=== PATIENT | female | born 1940 | race Caucasian/White ===

== ENCOUNTER 2017-05-31 09:17 | Outpatient (CLI) | payer MEDICARE ==
--- NOTE | 2017-05-31 10:38 | MMO ---
BILATERAL SCREENING MAMMOGRAM: Date: 05/31/17 INDICATION: Annual exam. COMPARISON: Prior exams dated 08/14/14 and 03/21/10. FINDINGS: Interpretation of this exam was assisted with computer-aided detection. There are scattered fibroglandular elements bilaterally. No new suspicious mass, cluster of microcalcifications, or area of architectural distortion is evide nt. There are some benign-appearing calcifications within the right breast. IMPRESSION: BIRADS 2: Benign Finding(s) Recommend routine annual mammographic screening. POS: FAIZA
== END 2017-05-31 09:18 | disposition home or self-care (01) ==
LOC: MAMMO 09:17
PROVIDERS: ATTEND Family Medicine
DX: Z12.31 Encounter for screening mammogram for malignant neoplasm of breast (principal)
CPT/HCPCS: 77067; G0202

== ENCOUNTER 2018-01-13 09:24 | Outpatient (CLI) | payer MEDICARE ==
--- NOTE | 2018-01-13 11:31 | RAD ---
CHEST 2 VIEWS: Date: 01/13/18 HISTORY: Dyspnea. COMPARISON: Radiograph from 2017. FINDINGS: Scattered nodular densities and scarring in both lungs is similar. No new focal air space consolidati on, pneumothorax, or effusion. Mild spondylosis thoracic spine. IMPRESSION: Unchanged chronic changes. No acute intrathoracic abnormality. POS: H
== END 2018-01-13 09:25 | disposition home or self-care (01) ==
LOC: RAD 09:24
PROVIDERS: ATTEND Internal Medicine Critical Care Medicine
DX: R06.00 Dyspnea, unspecified (principal)
CPT/HCPCS: 71046

== ENCOUNTER 2019-01-09 10:12 | Outpatient (CLI) | payer MEDICARE ==
--- NOTE | 2019-01-09 10:30 | RAD ---
Exam: Chest 2 views HISTORY:Dyspnea Comparison: 01/13/2018 FINDINGS: Lungs: A grouping of reticulonodular opacities are seen at the lateral right mid lung zone, and to a lesser extent at the lateral left midlung. Focal left lateral basilar opacity remains. Cardiac silhouette:Mildly enlarged Pulmonary vessels: Slight central prominence Pleural Spaces: Clear Pneumothorax: None Osseous abnormalities: None of acuity. IMPRESSION: Continued, scattered bilateral reticulonodular opacities throughout each lung. Consider f ollow-up CT thorax for further evaluation.
== END 2019-01-09 10:13 | disposition home or self-care (01) ==
LOC: RAD 10:12
PROVIDERS: ATTEND Internal Medicine Critical Care Medicine
DX: R06.00 Dyspnea, unspecified (principal); R91.8 Other nonspecific abnormal finding of lung field
CPT/HCPCS: 71046

== ENCOUNTER 2019-01-14 12:10 | Emergency (ER) | payer MEDICARE ==
--- NOTE | 2019-01-14 13:15 | CT ---
CT head noncontrast HISTORY: Lightheaded. Dizzy. FINDINGS: There is no evidence of acute intracranial hemorrhage or infarct. The ventricles appear nor mal in size, shape and position. There is no mass effect or shift of midline structures. Motion artifact obscures detail at the brain base. Visualized paranasal sinuses remain well aerated. IMPRESSION: No acute intracranial abnormalities are demonstrated.
[2019-01-14] MEDS ORDERED: hydrALAZINE 20 MG/ML VIAL ONE (13:21)
--- NOTE | 2019-01-14 13:38 | RAD ---
EXAM: Single view of the chest HISTORY: Lightheadedness and dizziness COMPARISON: 10/25/2013 FINDINGS: Single view of the chest shows an enlarged but stable cardiomediastinal silhouette. There i s no evidence of consolidation, mass, or pleural effusion. Degenerative changes are seen in the spine. IMPRESSION: Cardiomegaly without evidence of acute cardiopulmonary disease
[2019-01-14 13:44] LABS: #Basophils 0.1 thou/uL (0.0-0.2); #Eosinphils 0.3 thou/uL (0.0-0.7); #Lymphocytes 1.4 thou/uL (1.20-3.40); #Monocytes 0.5 thou/uL (0.11-0.59); #Neutrophils 5.2 thou/uL (1.40-6.50); %Eosinophils 3.4 % (0.0-10.0); %Lymphocytes 18.6 % (21.0-51.0); %Monocytes 6.9 % (0.0-10.0); %Neutrophils 70.1 % (42.0-75.0); Hemoglobin 14.1 g/dL (12.0-16.0); Mean Corpuscular HGB CONC 35.2 g/dL (32.0-36.0); Mean Corpuscular Hemoglobin 31.7 pg (27.0-31.0); Mean Corpuscular Volume 90.2 fL (78.0-98.0); Mean Platelet Volume 7.9 fL (7.4-10.4); Platelet Count 230 thou/uL (130-400); RBC Distribution Width 13.6 % (11.5-14.5); Red Blood Cell (RBC) Count 4.43 mill/uL (4.20-5.40); White Blood Cell (WBC) Count 7.4 thou/uL (4.8-10.8)
[2019-01-14 13:48] LABS: Bilirubin Negative (Negative); Blood, Urine Negative (Negative); Clarity CLOUDY (Clear); Glucose, Urine (Dipstick) Negative (Negative); Leukocyte Negative (Negative); Nitrite Negative (Negative); Protein, Urine (Dipstick) Negative (Neg-Trace); Specific Gravity, Urine 1.006 (1.002-1.036); Urobilinogen 0.2 mg/dL (0.2-1.0); pH, Urine 7.5 (5.0-9.0)
[2019-01-14 13:59] LABS: ALT (SGPT) 19 U/L (8-55); AST (SGOT) 30 U/L (5-34); Albumin 4.8 g/dL (3.4-4.8); Alkaline Phosphatase 79 U/L (40-150); Anion Gap 14 mmol/L (10-20); BUN (Urea Nitrogen) 15 mg/dL (9.8-20.1); Bilirubin, Total 1.3 mg/dL (0.2-1.2); Calc. Creatinine Clearance 0 mL/min (70-130); Calcium 10.6 mg/dL (7.8-10.44); Carbon Dioxide 29 mmol/L (23-31); Chloride 96 mmol/L (98-107); Estimated GFR-MDRD 67; Globulin 2.8 g/dL (2.4-3.5); Glucose 103 mg/dL (83-110); Protein, Total 7.6 g/dL (6.0-8.3); Sodium 135 mmol/L (136-145)
== END 2019-01-14 14:45 | disposition home or self-care (01) ==
LOC: ERS 12:10
DX: R42 Dizziness and giddiness (principal); I10 Essential (primary) hypertension
CPT/HCPCS: 36415; 70450; 71045; 80053; 81003; 84484; 85025; 93005; 96374; J0360

== ENCOUNTER 2019-03-08 12:23 | Outpatient (CLI) | payer MEDICARE | END 2019-03-08 12:24 | disposition home or self-care (01) | LOC: ULT 12:23 | PROVIDERS: ATTEND Physician Assistant | DX: I51.7 Cardiomegaly (principal); I08.3 Combined rheumatic disorders of mitral, aortic and tricuspid valves | CPT/HCPCS: 93306 ==

== ENCOUNTER 2019-05-22 08:45 | Outpatient (CLI) | payer MEDICARE ==
--- NOTE | 2019-05-22 11:35 | BD ---
DEXA BONE DENSITY STUDY: Date: 05/22/19 HISTORY: Osteoporosis screening. COMPARISON: None. FINDINGS: Lumbar Spine: BMD (g/cm2) L1 0.898 T-Score: -0.8 Z-Score: 1.4 L2 0.928 T-Score: -0.9 Z-Score: 1.5 L3 1.129 T-Score: 0.4 Z-Score: 3.0 L4 1.245 T-Score: 1.7 Z-Score: 4.3 L1-L4 1.050 T-Score: 0.2 Z-Score: 2.5 Left Femoral Neck: 0.588 T-Score: -2.4 Z-Score: -0.2 Total Femur: 0.762 T-Score: -1.5 Z-Score: 0.4 WHO Classification: Osteopenia. IMPRESSION: Osteopenia with elevated fracture risk. POS: C
== END 2019-05-22 08:46 | disposition home or self-care (01) ==
LOC: BICMAMMO 08:45
PROVIDERS: ATTEND Internal Medicine
DX: M81.0 Age-related osteoporosis without current pathological fracture (principal); M85.852 Other specified disorders of bone density and structure, left thigh
CPT/HCPCS: 77080

== ENCOUNTER 2019-08-28 12:07 | Outpatient (CLI) | payer MEDICARE ==
--- NOTE | 2019-08-28 14:59 | RAD ---
PA AND LATERAL VIEWS CHEST: Date: 08/28/2019 HISTORY: Cough. FINDINGS/IMPRESSION: Comparison made with exam of 08/23/2019. The heart size is normal. The lungs are well expanded without lobar consolidation, pneumothoraces, or pleural effusions. Peribronchial thickening is noted on either side. There are degenerative changes in the spine. Further evaluation with CT scan would be helpful. POS: [facility]
== END 2019-08-28 12:08 | disposition home or self-care (01) ==
LOC: BICRAD 12:07
PROVIDERS: ATTEND Physician Assistant
DX: R05 Cough (principal)
CPT/HCPCS: 71046

== ENCOUNTER 2020-02-20 10:23 | Outpatient (CLI) | payer MEDICARE ==
--- NOTE | 2020-02-20 10:38 | RAD ---
EXAM: Chest PA and lateral: HISTORY: Dyspnea. Seasonal allergies COMPARISON: 08/28/2019 FINDINGS: Heart: Normal cardiac silhouette Aorta: Slight elongation of the aorta Pulmonary vessels: Normal Costophrenic angles: Costophrenic angles are clear. Lungs: Hyperinflation with chronic changes. No consolidation or mass. Pneumothorax: No pneumothorax Osseous structures: No acute osseous abnormalities IMPRESSION: 1. Hyperinflation. COPD. Chronic lung parenchymal changes.
== END 2020-02-20 10:24 | disposition home or self-care (01) ==
LOC: BICRAD 10:23
PROVIDERS: ATTEND Internal Medicine Critical Care Medicine
DX: R06.00 Dyspnea, unspecified (principal); J44.9 Chronic obstructive pulmonary disease, unspecified; J98.4 Other disorders of lung
CPT/HCPCS: 71046

== ENCOUNTER 2021-02-19 10:49 | Outpatient (CLI) | payer MEDICARE | END 2021-02-19 10:50 | disposition home or self-care (01) | LOC: BICRAD 10:49 | PROVIDERS: ATTEND Internal Medicine Critical Care Medicine | DX: R06.00 Dyspnea, unspecified (principal) | CPT/HCPCS: 71046 ==

== ENCOUNTER 2021-06-12 09:36 | Outpatient (CLI) | payer MEDICARE | END 2021-06-12 09:37 | disposition home or self-care (01) | LOC: BICMAMMO 09:36 | PROVIDERS: ATTEND Internal Medicine | DX: Z12.31 Encounter for screening mammogram for malignant neoplasm of breast (principal); M81.0 Age-related osteoporosis without current pathological fracture; M85.89 Other specified disorders of bone density and structure, multiple sites | CPT/HCPCS: 77063; 77067; 77080 ==

== ENCOUNTER 2022-09-25 10:48 | Outpatient (CLI) | payer MEDICARE | END 2022-09-25 10:49 | disposition home or self-care (01) | LOC: BICRAD 10:48 | PROVIDERS: ATTEND Family Medicine | DX: R06.02 Shortness of breath (principal) | CPT/HCPCS: 71046 ==

== ENCOUNTER 2022-12-10 13:28 | Outpatient (CLI) | payer MEDICARE | END 2022-12-10 13:29 | disposition home or self-care (01) | LOC: RAD 13:28 | PROVIDERS: ATTEND Internal Medicine Critical Care Medicine | DX: R06.00 Dyspnea, unspecified (principal) | CPT/HCPCS: 71046 ==

== ENCOUNTER 2022-12-31 10:33 | Outpatient (CLI) | payer MEDICARE ==
[2022-12-31 11:46] LABS: Hemoglobin 13.3 g/dL (12.0-15.5); Mean Corpuscular HGB CONC 34.1 g/dL (32.0-36.0); Mean Corpuscular Hemoglobin 30.2 pg (27.0-33.0); Mean Corpuscular Volume 88.4 fl (81.6-98.3); Mean Platelet Volume 9.9 fl (7.4-10.4); Platelet Count 225 10x3/uL (150-450); RBC Distribution Width 13.4 % (11.5-14.5); Red Blood Cell (RBC) Count 4.41 10x6/uL (3.90-5.03); White Blood Cell (WBC) Count 7.7 10x3/uL (3.5-10.5)
[2022-12-31 12:13] LABS: Anion Gap 14 mmol/L (10-20); BUN (Urea Nitrogen) 14 mg/dL (9.8-20.1); Calc. Creatinine Clearance 0 mL/min (70-130); Calcium 9.3 mg/dL (7.8-10.44); Carbon Dioxide 29 mmol/L (23-31); Chloride 95 mmol/L (98-107); Estimated GFR 72; Glucose 101 mg/dL (83-110); Potassium 3.9 mmol/L (3.5-5.1); Sodium 134 mmol/L (136-145)
== END 2022-12-31 10:34 | disposition home or self-care (01) ==
LOC: LABBT 10:33
PROVIDERS: ATTEND Student in an Organized Health Care Education/Training Program
DX: Z01.812 Encounter for preprocedural laboratory examination (principal); J38.6 Stenosis of larynx
CPT/HCPCS: 80048; 85027

== ENCOUNTER 2023-04-15 09:17 | Inpatient (IN) | payer MEDICARE ==
[2023-04-15 09:52] LABS: #Eosinphils 0.1 thou/uL (0.0-0.7); #Monocytes 0.5 thou/uL (0.11-0.59); %Basophils 0.3 % (0.0-1.0); %Eosinophils 0.5 % (0.0-10.0); %Lymphocytes 8.8 % (21.0-51.0); %Neutrophils 85.2 % (42.0-75.0); Hematocrit 40.8 % (36.0-47.0); Hemoglobin 13.3 g/dL (12.0-16.0); Mean Corpuscular HGB CONC 32.6 g/dL (32.0-36.0); Mean Corpuscular Hemoglobin 30.1 pg (27.0-31.0); Mean Corpuscular Volume 92.3 fl (78.0-98.0); Mean Platelet Volume 10.6 fL (7.4-10.4); Platelet Count 206 10x3/uL (130-400); RBC Distribution Width 15.4 % (11.5-14.5); Red Blood Cell (RBC) Count 4.42 mill/uL (4.20-5.40); White Blood Cell (WBC) Count 9.4 10x3/uL (4.8-10.8)
[2023-04-15 10:16] LABS: ALT (SGPT) 15 U/L (8-55); AST (SGOT) 24 U/L (5-34); Alkaline Phosphatase 69 U/L (40-110); Anion Gap 14 mmol/L (10-20); BUN (Urea Nitrogen) 18 mg/dL (9.8-20.1); Calc. Creatinine Clearance 0 mL/min (70-130); Calcium 9.3 mg/dL (7.8-10.44); Carbon Dioxide 23 mmol/L (23-31); Chloride 95 mmol/L (98-107); Estimated GFR 74; Globulin 2.4 g/dL (2.4-3.5); Glucose 153 mg/dL (83-110); PTT 23.2 sec (22.9-36.1); Potassium 3.2 mmol/L (3.5-5.1); Protein, Total 6.4 g/dL (5.8-8.1); Prothrombin Time 13.7 sec (12.0-14.7); Sodium 129 mmol/L (136-145)
[2023-04-15 10:19] LABS: Troponin I Less than 0.010 ng/mL (< 0.028)
[2023-04-15] MEDS ORDERED: Acetaminophen 650 MG Suppository PR PRN (10:35)
[2023-04-15] MEDS ORDERED: Ondansetron PF 4 MG/2 ML Vial IVP PRN (10:35)
[2023-04-15] MEDS ORDERED: Senokot S 8.6-50 MG TAB PO PRN (10:35)
[2023-04-15] MEDS ORDERED: Bisacodyl 10 MG SUPP PR PRN (10:35)
[2023-04-15] MEDS ORDERED: hydrALAZINE 20 MG/ML VIAL SLOW IVP PRN (10:35)
[2023-04-15] MEDS ORDERED: Aspirin 300 MG Suppository ONE (10:58)
[2023-04-15 12:45] VITALS: BMI 21.1
[2023-04-15] MEDS ORDERED: Potassium Chloride 20 MEQ/100 ML PREMIX BAG ONE (12:46)
[2023-04-15] MEDS ORDERED: Iopamidol-370 76% 500 ML MDV (1 ML CHARGE) ONE (12:47)
[2023-04-15] MEDS: Sodium Chloride 0.9% 1,000 ML IV SCH (12:53)
[2023-04-15] MEDS: Potassium Chloride 20 MEQ in Premix Bag 1 BAG IVPB SCH ×2 (12:56→16:31)
[2023-04-15 13:34] LABS: Troponin I Less than 0.010 ng/mL (< 0.028)
[2023-04-15 17:34] LABS: Troponin I Less than 0.010 ng/mL (< 0.028)
[2023-04-15] MEDS: Famotidine/PF 20 mg/2ml Vial SLOW IVP SCH (20:22)
[2023-04-15] MEDS: Atorvastatin Calcium 40 MG TAB PO SCH (20:38)
[2023-04-16] MEDS: Sodium Chloride 0.9% 1,000 ML IV SCH (03:58)
[2023-04-16 05:10] LABS: #Monocytes 1.3 thou/uL (0.11-0.59); #Neutrophils 10.8 thou/uL (1.40-6.50); %Basophils 0.2 % (0.0-1.0); %Eosinophils 0.1 % (0.0-10.0); %Monocytes 9.5 % (0.0-10.0); %Neutrophils 77.8 % (42.0-75.0); Hematocrit 44.1 % (36.0-47.0); Hemoglobin 14.8 g/dL (12.0-16.0); Mean Corpuscular HGB CONC 33.6 g/dL (32.0-36.0); Mean Corpuscular Hemoglobin 29.5 pg (27.0-31.0); Mean Platelet Volume 10.6 fL (7.4-10.4); Platelet Count 289 10x3/uL (130-400); RBC Distribution Width 15.8 % (11.5-14.5); Red Blood Cell (RBC) Count 5.02 mill/uL (4.20-5.40); White Blood Cell (WBC) Count 13.8 10x3/uL (4.8-10.8)
[2023-04-16 05:11] LABS: Hemoglobin A1c 5.1 % (4.0-6.0)
[2023-04-16 05:20] LABS: Mean Corpuscular Volume 87.8 fl (78.0-98.0)
[2023-04-16 05:42] LABS: ALT (SGPT) 16 U/L (8-55); AST (SGOT) 35 U/L (5-34); Albumin 4.2 g/dL (3.4-4.8); Alkaline Phosphatase 75 U/L (40-110); Anion Gap 17 mmol/L (10-20); BUN (Urea Nitrogen) 13 mg/dL (9.8-20.1); Bilirubin, Total 1.9 mg/dL (0.2-1.2); Calc. Creatinine Clearance 48 mL/min (70-130); Calcium 10.1 mg/dL (7.8-10.44); Carbon Dioxide 25 mmol/L (23-31); Cardiac Risk 2.6 (Less than 4.5); Chloride 94 mmol/L (98-107); Cholesterol 187 mg/dl (< 200 Desired); Estimated GFR 84; Globulin 2.7 g/dL (2.4-3.5); Glucose 101 mg/dL (83-110); HDL Cholesterol 73 mg/dL (>60 Neg Risk); LDL Cholesterol, Calculated 101 mg/dL; Magnesium 1.3 mg/dL (1.6-2.6); Potassium 3.5 mmol/L (3.5-5.1); Protein, Total 6.9 g/dL (5.8-8.1); Sodium 132 mmol/L (136-145); Triglycerides 65 mg/dL (Less than 150)
[2023-04-16] MEDS: Aspirin 300 MG Suppository PR SCH (09:31)
[2023-04-16] MEDS: Atorvastatin Calcium 40 MG TAB PO SCH (20:25)
[2023-04-16] MEDS: Famotidine/PF 20 mg/2ml Vial SLOW IVP SCH (20:25)
[2023-04-17] MEDS: Aspirin 300 MG Suppository PR SCH (10:18)
[2023-04-17] MEDS: Acetaminophen 325 MG TAB PO PRN (11:33)
[2023-04-17] MEDS ORDERED: Metoprolol Tartrate 25 MG TAB PO SCH ×2 (12:15→21:00)
[2023-04-17] MEDS ORDERED: Magnesium Sulfate 3 GM in Sodium Chloride 0.9% 100 ML IVPB SCH (13:15)
[2023-04-17] MEDS: Famotidine/PF 20 mg/2ml Vial SLOW IVP SCH (21:14)
[2023-04-17] MEDS: Atorvastatin Calcium 40 MG TAB PO SCH (21:24)
[2023-04-17] MEDS ORDERED: Methotrexate Sodium 2.5 MG TAB PO SCH (22:00)
[2023-04-18] MEDS: Acetaminophen 325 MG TAB PO PRN ×2 (05:16→15:24)
[2023-04-18 07:16] LABS: #Monocytes 1.2 thou/uL (0.11-0.59); #Neutrophils 9.9 thou/uL (1.40-6.50); %Basophils 0.2 % (0.0-1.0); %Eosinophils 0.3 % (0.0-10.0); %Lymphocytes 7.3 % (21.0-51.0); %Monocytes 10.1 % (0.0-10.0); %Neutrophils 81.4 % (42.0-75.0); Hematocrit 45.6 % (36.0-47.0); Hemoglobin 15.1 g/dL (12.0-16.0); Mean Corpuscular HGB CONC 33.1 g/dL (32.0-36.0); Mean Corpuscular Hemoglobin 29.2 pg (27.0-31.0); Mean Platelet Volume 10.2 fL (7.4-10.4); Platelet Count 279 10x3/uL (130-400); RBC Distribution Width 15.8 % (11.5-14.5); Red Blood Cell (RBC) Count 5.18 mill/uL (4.20-5.40); White Blood Cell (WBC) Count 12.1 10x3/uL (4.8-10.8)
[2023-04-18 07:38] LABS: Anion Gap 16 mmol/L (10-20); BUN (Urea Nitrogen) 24 mg/dL (9.8-20.1); Calc. Creatinine Clearance 45 mL/min (70-130); Calcium 9.6 mg/dL (7.8-10.44); Carbon Dioxide 25 mmol/L (23-31); Chloride 94 mmol/L (98-107); Estimated GFR 78; Glucose 108 mg/dL (83-110); Magnesium 2.1 mg/dL (1.6-2.6); Sodium 132 mmol/L (136-145)
[2023-04-18] MEDS ORDERED: Aspirin Chewable 81 MG TAB PO SCH (09:30)
[2023-04-18] MEDS: Atenolol 50 MG TAB PO SCH (10:40)
[2023-04-18] MEDS: Calcium Carbonate 600 MG + Vit D TAB PO SCH (10:40)
[2023-04-18] MEDS: hydrALAZINE 25 MG TAB PO SCH ×4 (10:41→20:31)
[2023-04-18] MEDS: Multivit, Therapeutic 1 TAB PO SCH (10:41)
[2023-04-18] MEDS: Losartan 25 MG TAB PO SCH ×2 (10:50→20:30)
[2023-04-18] MEDS: Aspirin 300 MG Suppository PR SCH (11:08)
[2023-04-18] MEDS: cycloSPORINE 0.05% Ophthalmic Droperette EA EYE SCH ×2 (13:26→20:45)
[2023-04-18] MEDS: Atorvastatin Calcium 40 MG TAB PO SCH (20:30)
[2023-04-18] MEDS: Sertraline 25 MG TAB PO SCH (20:31)
[2023-04-19] MEDS: Acetaminophen 325 MG TAB PO PRN ×3 (03:26→20:53)
[2023-04-19] MEDS ORDERED: Sodium Chloride 0.9% 500 ML IV SCH (04:30)
[2023-04-19] MEDS ORDERED: traMADol HCl 50 MG TAB PO PRN (08:26)
[2023-04-19] MEDS: cycloSPORINE 0.05% Ophthalmic Droperette EA EYE SCH ×2 (08:54→20:53)
[2023-04-19] MEDS: Atenolol 50 MG TAB PO SCH (08:55)
[2023-04-19] MEDS: Multivit, Therapeutic 1 TAB PO SCH (08:56)
[2023-04-19] MEDS: hydrALAZINE 25 MG TAB PO SCH ×4 (08:56→20:55)
[2023-04-19] MEDS: Losartan 25 MG TAB PO SCH ×2 (08:56→20:54)
[2023-04-19] MEDS: Calcium Carbonate 600 MG + Vit D TAB PO SCH (08:56)
[2023-04-19] MEDS ORDERED: Aspirin Chewable 81 MG TAB PO SCH ×2 (09:00)
[2023-04-19] MEDS: Atorvastatin Calcium 40 MG TAB PO SCH (20:55)
[2023-04-19] MEDS: Sertraline 25 MG TAB PO SCH (20:55)
[2023-04-20] MEDS: Atenolol 50 MG TAB PO SCH (09:07)
[2023-04-20] MEDS: Multivit, Therapeutic 1 TAB PO SCH (09:07)
[2023-04-20] MEDS: Aspirin Chewable 81 MG TAB PO SCH (09:07)
[2023-04-20] MEDS: Calcium Carbonate 600 MG + Vit D TAB PO SCH (09:08)
[2023-04-20] MEDS: hydrALAZINE 25 MG TAB PO SCH ×4 (09:08→20:03)
[2023-04-20] MEDS: Losartan 25 MG TAB PO SCH ×2 (09:08→20:02)
[2023-04-20 09:40] LABS: Anion Gap 13 mmol/L (10-20); BUN (Urea Nitrogen) 24 mg/dL (9.8-20.1); Calc. Creatinine Clearance 48 mL/min (70-130); Carbon Dioxide 31 mmol/L (23-31); Chloride 95 mmol/L (98-107); Estimated GFR 83; Glucose 105 mg/dL (83-110); Potassium 3.7 mmol/L (3.5-5.1); Sodium 135 mmol/L (136-145)
[2023-04-20] MEDS: cycloSPORINE 0.05% Ophthalmic Droperette EA EYE SCH ×2 (12:42→20:02)
[2023-04-20] MEDS: Sertraline 25 MG TAB PO SCH (20:04)
[2023-04-21] MEDS: Atorvastatin Calcium 40 MG TAB PO SCH (00:17)
[2023-04-21] MEDS: Losartan 25 MG TAB PO SCH (08:54)
[2023-04-21] MEDS: Atenolol 50 MG TAB PO SCH (08:54)
[2023-04-21] MEDS: Aspirin Chewable 81 MG TAB PO SCH (08:55)
[2023-04-21] MEDS: cycloSPORINE 0.05% Ophthalmic Droperette EA EYE SCH (08:55)
[2023-04-21] MEDS: hydrALAZINE 25 MG TAB PO SCH ×2 (08:55→11:57)
[2023-04-21] MEDS: Calcium Carbonate 600 MG + Vit D TAB PO SCH (08:55)
[2023-04-21] MEDS: Multivit, Therapeutic 1 TAB PO SCH (08:55)
[2023-04-21 12:11] VITALS: BP 137/76; TEMP 98.4
== END 2023-04-21 13:25 | DRG 64 ==
LOC: SUATTDRO 09:17 → ERS 09:17 → ERHOLD 11:22 → 2SE 14:09
PROVIDERS: ADMIT Internal Medicine; ATTEND Hospitalist
DX: I63.512 Cerebral infarction due to unspecified occlusion or stenosis of left middle cerebral artery (principal); G93.6 Cerebral edema; G81.91 Hemiplegia, unspecified affecting right dominant side; I16.1 Hypertensive emergency; E87.1 Hypo-osmolality and hyponatremia; I10 Essential (primary) hypertension; I48.91 Unspecified atrial fibrillation; M06.9 Rheumatoid arthritis, unspecified; J39.8 Other specified diseases of upper respiratory tract; F39 Unspecified mood [affective] disorder; E87.8 Other disorders of electrolyte and fluid balance, not elsewhere classified; F32.A Depression, unspecified; J38.6 Stenosis of larynx; M81.0 Age-related osteoporosis without current pathological fracture; E78.5 Hyperlipidemia, unspecified; E83.42 Hypomagnesemia; E87.6 Hypokalemia; R47.01 Aphasia; R29.714 NIHSS score 14; R29.810 Facial weakness; I16.0 Hypertensive urgency; F41.1 Generalized anxiety disorder; I08.1 Rheumatic disorders of both mitral and tricuspid valves; E55.9 Vitamin D deficiency, unspecified; Z88.2 Allergy status to sulfonamides; Z88.8 Allergy status to other drugs, medicaments and biological substances; Z91.048 Other nonmedicinal substance allergy status; Z79.52 Long term (current) use of systemic steroids; Z79.899 Other long term (current) drug therapy; Z82.49 Family history of ischemic heart disease and other diseases of the circulatory system; Z87.01 Personal history of pneumonia (recurrent); Z82.3 Family history of stroke
CPT/HCPCS: 0042T; 36415; 70450; 70496; 70498; 70551; 71045; 74230; 80048; 80053; 80061; 83036; 83735; 84443; 84484; 85025; 85610; 85730; 93005; 93306; 94760; J1650; J3475; J3480; J3490; J7030; J7050; Q9967; S0028

== ENCOUNTER 2023-07-06 09:47 | Day surgery (SDC) | payer MEDICARE ==
[2023-07-05 11:30] VITALS: BMI 19.1
[2023-07-06 10:45] LABS: #Eosinphils 0.1 thou/uL (0.0-0.7); #Monocytes 0.4 thou/uL (0.11-0.59); #Neutrophils 8.4 thou/uL (1.40-6.50); %Basophils 0.2 % (0.0-1.0); %Eosinophils 0.5 % (0.0-10.0); %Monocytes 4.3 % (0.0-10.0); %Neutrophils 84.6 % (42.0-75.0); Hematocrit 39.4 % (36.0-47.0); Hemoglobin 12.7 g/dL (12.0-16.0); Mean Corpuscular HGB CONC 32.2 g/dL (32.0-36.0); Mean Corpuscular Hemoglobin 28.2 pg (27.0-31.0); Mean Corpuscular Volume 87.4 fl (78.0-98.0); Mean Platelet Volume 10.5 fL (7.4-10.4); Platelet Count 195 10x3/uL (130-400); RBC Distribution Width 17.5 % (11.5-14.5); Red Blood Cell (RBC) Count 4.51 mill/uL (4.20-5.40); White Blood Cell (WBC) Count 9.9 10x3/uL (4.8-10.8)
[2023-07-06 11:06] LABS: INR-International Normal Ratio 1.7; Prothrombin Time 20.3 sec (12.0-14.7)
[2023-07-06 11:07] LABS: PTT 35.5 sec (22.9-36.1)
[2023-07-06 11:15] LABS: Anion Gap 15 mmol/L (10-20); BUN (Urea Nitrogen) 14 mg/dL (9.8-20.1); Calc. Creatinine Clearance 43 mL/min (70-130); Calcium 9.6 mg/dL (7.8-10.44); Carbon Dioxide 26 mmol/L (23-31); Cardiac Risk 2.7 (Less than 4.5); Chloride 99 mmol/L (98-107); Cholesterol 157 mg/dl (< 200 Desired); Estimated GFR 82; Glucose 99 mg/dL (83-110); HDL Cholesterol 59 mg/dL (>60 Neg Risk); LDL Cholesterol, Calculated 83 mg/dL; Potassium 3.8 mmol/L (3.5-5.1); Sodium 136 mmol/L (136-145); Triglycerides 77 mg/dL (Less than 150)
[2023-07-06] MEDS ORDERED: PROPOFOL 20 ML ONE (12:04)
[2023-07-06] MEDS ORDERED: fentaNYL 50 mcg/mL 1 mL Vial ONE (12:10)
[2023-07-06] MEDS ORDERED: Ketamine In 0.9 % NaCl 50 MG/5 ML SYRINGE ONE (12:17)
[2023-07-06] MEDS ORDERED: Esmolol 100 MG/10 ML VIAL ONE (12:27)
[2023-07-06] MEDS ORDERED: Ondansetron PF 4 MG/2 ML Vial ONE (12:27)
[2023-07-06] MEDS ORDERED: hydrALAZINE 20 MG/ML VIAL ONE (12:38)
== END 2023-07-06 13:55 | disposition home or self-care (01) ==
LOC: SDC 09:47
PROVIDERS: ATTEND Internal Medicine Cardiovascular Disease
PROC: B245ZZ4 Ultrasonography of Left Heart, Transesophageal (ICD-10-PCS; principal; 2023-07-06)
PROC: 5A2204Z Restoration of Cardiac Rhythm, Single (ICD-10-PCS; 2023-07-06)
DX: I48.91 Unspecified atrial fibrillation (principal); J39.8 Other specified diseases of upper respiratory tract; I08.3 Combined rheumatic disorders of mitral, aortic and tricuspid valves; I10 Essential (primary) hypertension; E78.5 Hyperlipidemia, unspecified; Q21.0 Ventricular septal defect; M06.9 Rheumatoid arthritis, unspecified; Z86.73 Personal history of transient ischemic attack (TIA), and cerebral infarction without residual deficits; Z88.8 Allergy status to other drugs, medicaments and biological substances
CPT/HCPCS: 80048; 80061; 85025; 85610; 85730; 92960; 93005; 93312; J0360; J3010; 36415; 93010; J2405; J2704; J3490

== ENCOUNTER 2023-07-11 17:28 | Inpatient (IN) | payer MEDICARE ==
[~2023-07-11 17:28] MED LIST: Iopamidol-370 76% 500 ML MDV (1 ML CHARGE) ONE
[2023-07-11 18:00] LABS: #Eosinphils 0.2 thou/uL (0.0-0.7); #Monocytes 0.5 thou/uL (0.11-0.59); #Neutrophils 4.9 thou/uL (1.40-6.50); %Basophils 0.3 % (0.0-1.0); %Eosinophils 2.9 % (0.0-10.0); %Lymphocytes 19.3 % (21.0-51.0); %Monocytes 7.4 % (0.0-10.0); %Neutrophils 69.8 % (42.0-75.0); Hematocrit 42.1 % (36.0-47.0); Hemoglobin 13.5 g/dL (12.0-16.0); Mean Corpuscular HGB CONC 32.1 g/dL (32.0-36.0); Mean Corpuscular Hemoglobin 27.8 pg (27.0-31.0); Mean Corpuscular Volume 86.6 fl (78.0-98.0); Mean Platelet Volume 10.5 fL (7.4-10.4); Platelet Count 237 10x3/uL (130-400); RBC Distribution Width 18.3 % (11.5-14.5); Red Blood Cell (RBC) Count 4.86 mill/uL (4.20-5.40)
[2023-07-11 18:29] LABS: ALT (SGPT) 21 U/L (8-55); AST (SGOT) 30 U/L (5-34); Albumin 4.6 g/dL (3.4-4.8); Alkaline Phosphatase 80 U/L (40-110); Anion Gap 19 mmol/L (10-20); BUN (Urea Nitrogen) 18 mg/dL (9.8-20.1); Bilirubin, Total 1.7 mg/dL (0.2-1.2); Calc. Creatinine Clearance 0 mL/min (70-130); Calcium 9.8 mg/dL (7.8-10.44); Carbon Dioxide 27 mmol/L (23-31); Chloride 99 mmol/L (98-107); Estimated GFR 72; Globulin 2.7 g/dL (2.4-3.5); Glucose 105 mg/dL (83-110); Potassium 3.7 mmol/L (3.5-5.1); Protein, Total 7.3 g/dL (5.8-8.1); Sodium 141 mmol/L (136-145)
[2023-07-11 18:33] LABS: Troponin I 0.011 ng/mL (< 0.028)
[2023-07-11] MEDS ORDERED: methylPREDNISolone Sod Succ 40 MG VIAL ONE (18:38)
[2023-07-11] MEDS ORDERED: Nitroglycerin 2% Ointment 1 INCH/1 GM Packet ONE (18:38)
[2023-07-11 19:28] LABS: Bacteria/HPF None Seen HPF (None Seen); Bilirubin Negative (Negative); Blood, Urine Negative (Negative); CAUTI Indications for Culture Alt mental st,lethar; Clarity Clear (Clear); Glucose, Urine (Dipstick) Normal (Negative); Ketone, Urine Negative (Negative); Leukocyte Negative Leu/uL (Negative); Nitrite Negative (Negative); Protein, Urine (Dipstick) Negative (Neg-Trace); RBC/HPF 0-3 HPF (0-3); Specific Gravity, Urine 1.005 (1.002-1.036); Squamous Epithelial 0-3 HPF (0-3); Urobilinogen Normal mg/dL (Less than 2); WBC/HPF 0-3 HPF (0-3)
[2023-07-11 19:32] LABS: Urine Culture Reflex No No
[2023-07-11] MEDS ORDERED: Ondansetron ODT 4 MG TAB PO PRN (21:32)
[2023-07-11] MEDS ORDERED: Ondansetron PF 4 MG/2 ML Vial IVP PRN ×2 (21:32→21:45)
[2023-07-11] MEDS ORDERED: Acetaminophen 325 MG TAB PO PRN ×2 (21:32→21:45)
[2023-07-11] MEDS ORDERED: Acetaminophen 650 MG Suppository PR PRN (21:32)
[2023-07-11] MEDS ORDERED: Ipratropium/Albuterol 3 ML NEB NEB PRN (21:34)
[2023-07-11] MEDS ORDERED: Racepinephrine 2.25% 0.5 ML NEB NEB PRN (21:36)
[2023-07-11] MEDS ORDERED: Ondansetron ODT 4 MG TAB SL PRN (21:45)
[2023-07-11] MEDS ORDERED: Dextrose 5%-Lactated Ringers 1,000 ML IV SCH (22:00)
[2023-07-11 23:28] VITALS: BMI 3953.6
[2023-07-12 07:19] LABS: Anion Gap 20 mmol/L (10-20); BUN (Urea Nitrogen) 14 mg/dL (9.8-20.1); Calc. Creatinine Clearance 43 mL/min (70-130); Calcium 9.6 mg/dL (7.8-10.44); Carbon Dioxide 22 mmol/L (23-31); Chloride 99 mmol/L (98-107); Estimated GFR 86; Glucose 166 mg/dL (83-110); Potassium 3.8 mmol/L (3.5-5.1); Sodium 137 mmol/L (136-145)
[2023-07-12] MEDS: Famotidine/PF 20 mg/2ml Vial SLOW IVP SCH (08:49)
[2023-07-12] MEDS: Famotidine 20 MG TAB PO SCH (08:49)
[2023-07-12] MEDS ORDERED: Artificial Tear Sol 15 ML BOT EA EYE PRN (16:57)
[2023-07-12] MEDS: hydrALAZINE 25 MG TAB PO SCH ×2 (17:34→20:19)
[2023-07-12] MEDS: Apixaban 5 MG TAB PO SCH (20:19)
[2023-07-12] MEDS: Losartan 25 MG TAB PO SCH (20:20)
[2023-07-12] MEDS ORDERED: Sertraline 25 MG TAB PO SCH (21:00)
[2023-07-13] MEDS: Losartan 25 MG TAB PO SCH (07:54)
[2023-07-13] MEDS: Famotidine/PF 20 mg/2ml Vial SLOW IVP SCH (07:55)
[2023-07-13] MEDS: Famotidine 20 MG TAB PO SCH (07:55)
[2023-07-13] MEDS: Apixaban 5 MG TAB PO SCH (07:55)
[2023-07-13] MEDS: hydrALAZINE 25 MG TAB PO SCH (07:55)
[2023-07-13] MEDS ORDERED: Vitamin E 400 UNITS CAP PO SCH (09:00)
[2023-07-13] MEDS ORDERED: Atenolol 50 MG TAB PO SCH (09:00)
[2023-07-13] MEDS ORDERED: Calcium Carbonate 600 MG + Vit D TAB PO SCH (09:00)
[2023-07-13] MEDS ORDERED: Methotrexate Sodium 2.5 MG TAB PO SCH (09:00)
[2023-07-13] MEDS ORDERED: Folic Acid 1 MG TAB PO SCH (09:00)
[2023-07-13] MEDS ORDERED: Aspirin Chewable 81 MG TAB PO SCH (09:00)
[2023-07-13] MEDS ORDERED: Multivitamin W/ Minerals 1 TAB PO SCH (09:00)
[2023-07-13] MEDS ORDERED: Fluticasone Propionate Nasal Spray 16 gm Bottle NASAL SCH (09:00)
[2023-07-13] MEDS ORDERED: hydrALAZINE 25 MG TAB PO SCH (11:53)
[2023-07-13 12:12] VITALS: TEMP 98.6
[2023-07-13 12:17] VITALS: BP 182/93
== END 2023-07-13 13:24 | disposition home or self-care (01) | DRG 202 ==
LOC: ERS 17:28 → IMCU/EMU 20:05
PROVIDERS: ADMIT Student in an Organized Health Care Education/Training Program; ATTEND Emergency Medicine
DX: J39.8 Other specified diseases of upper respiratory tract (principal); I69.951 Hemiplegia and hemiparesis following unspecified cerebrovascular disease affecting right dominant side; Z88.8 Allergy status to other drugs, medicaments and biological substances; I16.0 Hypertensive urgency; Z88.2 Allergy status to sulfonamides; I10 Essential (primary) hypertension; F32.A Depression, unspecified; Z98.890 Other specified postprocedural states; I48.91 Unspecified atrial fibrillation; M06.9 Rheumatoid arthritis, unspecified; I69.920 Aphasia following unspecified cerebrovascular disease
CPT/HCPCS: 36416; 71045; 71275; 80048; 80053; 81001; 83880; 84484; 85025; 85379; 93005; 94640; 96374; J2920; J7611; Q9967; S0028

== ENCOUNTER 2023-07-23 10:00 | Outpatient (CLI) | payer MEDICARE | END 2023-07-23 10:01 | disposition home or self-care (01) | LOC: BICMAMMO 10:00 | PROVIDERS: ATTEND Internal Medicine Rheumatology | DX: M81.0 Age-related osteoporosis without current pathological fracture (principal); M85.89 Other specified disorders of bone density and structure, multiple sites | CPT/HCPCS: 77080 ==

== ENCOUNTER 2023-10-07 12:54 | Observation (INO) | payer MEDICARE ==
[2023-10-07 13:52] LABS: #Eosinphils 0.2 thou/uL (0.0-0.7); #Monocytes 0.4 thou/uL (0.11-0.59); #Neutrophils 4.6 thou/uL (1.40-6.50); %Basophils 0.5 % (0.0-1.0); %Eosinophils 2.3 % (0.0-10.0); %Monocytes 5.7 % (0.0-10.0); %Neutrophils 70.2 % (42.0-75.0); Hematocrit 36.6 % (36.0-47.0); Hemoglobin 11.8 g/dL (12.0-16.0); Mean Corpuscular HGB CONC 32.2 g/dL (32.0-36.0); Mean Corpuscular Hemoglobin 28.4 pg (27.0-31.0); Mean Corpuscular Volume 88.2 fl (78.0-98.0); Mean Platelet Volume 10.5 fL (7.4-10.4); Platelet Count 245 10x3/uL (130-400); RBC Distribution Width 17.5 % (11.5-14.5); Red Blood Cell (RBC) Count 4.15 mill/uL (4.20-5.40); White Blood Cell (WBC) Count 6.5 10x3/uL (4.8-10.8)
[2023-10-07 14:03] LABS: INR-International Normal Ratio 1.2; Prothrombin Time 15.6 sec (12.0-14.7)
[2023-10-07 14:04] LABS: PTT 31.4 sec (22.9-36.1)
[2023-10-07 14:23] LABS: Troponin I Less than 0.010 ng/mL (< 0.028)
[2023-10-07 14:26] LABS: ALT (SGPT) 19 U/L (8-55); AST (SGOT) 31 U/L (5-34); Albumin 4.3 g/dL (3.4-4.8); Alkaline Phosphatase 79 U/L (40-110); Anion Gap 12 mmol/L (10-20); BUN (Urea Nitrogen) 17 mg/dL (9.8-20.1); Bilirubin, Total 1.6 mg/dL (0.2-1.2); Calc. Creatinine Clearance 0 mL/min (70-130); Calcium 10.1 mg/dL (7.8-10.44); Carbon Dioxide 26 mmol/L (23-31); Chloride 103 mmol/L (98-107); Estimated GFR 77; Globulin 2.5 g/dL (2.4-3.5); Glucose 93 mg/dL (83-110); Potassium 3.8 mmol/L (3.5-5.1); Protein, Total 6.8 g/dL (5.8-8.1); Sodium 137 mmol/L (136-145)
[2023-10-07 14:46] LABS: Bacteria/HPF None Seen HPF (None Seen); Bilirubin Negative (Negative); Blood, Urine Negative (Negative); CAUTI Indications for Culture Alt mental st,lethar; Clarity Clear (Clear); Glucose, Urine (Dipstick) Normal (Negative); Ketone, Urine Negative (Negative); Leukocyte Negative Leu/uL (Negative); Nitrite Negative (Negative); Protein, Urine (Dipstick) Negative (Neg-Trace); RBC/HPF 0-3 HPF (0-3); Specific Gravity, Urine 1.009 (1.002-1.036); Squamous Epithelial None Seen HPF (0-3); Urobilinogen Normal mg/dL (Less than 2); WBC/HPF 0-3 HPF (0-3)
[2023-10-07 14:47] LABS: Urine Culture Reflex No No
[2023-10-07] MEDS ORDERED: Aspirin Chewable 81 MG TAB ONE (15:46)
[2023-10-07] MEDS ORDERED: hydrALAZINE 25 MG TAB ONE (15:49)
[2023-10-07] MEDS ORDERED: Ondansetron ODT 4 MG TAB PO PRN (17:25)
[2023-10-07] MEDS ORDERED: Ondansetron PF 4 MG/2 ML Vial IVP PRN (17:25)
[2023-10-07 18:08] LABS: Magnesium 2.1 mg/dL (1.6-2.6)
[2023-10-07 18:17] LABS: Hemoglobin A1c 5.4 % (4.0-6.0)
[2023-10-07] MEDS: Sertraline 25 MG TAB PO SCH (22:31)
[2023-10-07] MEDS: Atorvastatin Calcium 40 MG TAB PO SCH (22:31)
[2023-10-07] MEDS: hydrALAZINE 25 MG TAB PO SCH (22:31)
[2023-10-07] MEDS: Acetaminophen 325 MG TAB PO PRN (22:32)
[2023-10-07] MEDS: Artificial Tear Sol 15 ML BOT EA EYE SCH (22:32)
[2023-10-07] MEDS: Apixaban 5 MG TAB PO SCH (22:32)
[2023-10-08 05:32] LABS: ALT (SGPT) 15 U/L (8-55); AST (SGOT) 23 U/L (5-34); Albumin 3.6 g/dL (3.4-4.8); Alkaline Phosphatase 65 U/L (40-110); Anion Gap 7 mmol/L (10-20); BUN (Urea Nitrogen) 17 mg/dL (9.8-20.1); Bilirubin, Total 1.5 mg/dL (0.2-1.2); Calc. Creatinine Clearance 0 mL/min (70-130); Calcium 8.9 mg/dL (7.8-10.44); Carbon Dioxide 30 mmol/L (23-31); Cardiac Risk 2.3 (Less than 4.5); Chloride 103 mmol/L (98-107); Cholesterol 113 mg/dl (< 200 Desired); Estimated GFR 80; Globulin 2.1 g/dL (2.4-3.5); Glucose 88 mg/dL (83-110); HDL Cholesterol 49 mg/dL (>60 Neg Risk); LDL Cholesterol, Calculated 56 mg/dL; Potassium 3.8 mmol/L (3.5-5.1); Protein, Total 5.7 g/dL (5.8-8.1); Sodium 136 mmol/L (136-145); Triglycerides 41 mg/dL (Less than 150)
[2023-10-08] MEDS: Lorazepam 0.5 MG TAB PO PRN (08:26)
[2023-10-08] MEDS: Calcium Carbonate 600 MG + Vit D TAB PO SCH (08:27)
[2023-10-08] MEDS: Vitamin E 400 UNITS CAP PO SCH (08:27)
[2023-10-08] MEDS: Folic Acid 1 MG TAB PO SCH (08:27)
[2023-10-08] MEDS: Multivit, Therapeutic 1 TAB PO SCH (08:27)
[2023-10-08] MEDS: Fluticasone Propionate Nasal Spray 16 gm Bottle NASAL SCH (08:28)
[2023-10-08] MEDS: Aspirin 81 mg Enteric Coated Tablet PO SCH (08:28)
[2023-10-08] MEDS ORDERED: Aspirin Chewable 81 MG TAB PO SCH (09:00)
[2023-10-08 12:41] VITALS: TEMP 97.9
[2023-10-08 14:06] VITALS: BP 173/82
== END 2023-10-08 16:35 | disposition home or self-care (01) ==
LOC: ERS 12:54 → ERHOLD 17:28 → 2SE 21:08
PROVIDERS: ADMIT Internal Medicine; ATTEND Family Medicine
DX: I16.0 Hypertensive urgency (principal); I48.91 Unspecified atrial fibrillation; J38.6 Stenosis of larynx; F41.9 Anxiety disorder, unspecified; I10 Essential (primary) hypertension; M19.90 Unspecified osteoarthritis, unspecified site; Z79.01 Long term (current) use of anticoagulants; Z98.890 Other specified postprocedural states; Z88.2 Allergy status to sulfonamides; Z88.8 Allergy status to other drugs, medicaments and biological substances; Z91.09 Other allergy status, other than to drugs and biological substances; Z91.048 Other nonmedicinal substance allergy status; Z79.51 Long term (current) use of inhaled steroids; Z79.899 Other long term (current) drug therapy; Z79.82 Long term (current) use of aspirin; Z86.73 Personal history of transient ischemic attack (TIA), and cerebral infarction without residual deficits; Z87.39 Personal history of other diseases of the musculoskeletal system and connective tissue
CPT/HCPCS: 70450; 70551; 80053 ×2; 80061; 81001; 83036; 83735; 84484; 85025; 85610; 85730; 93005; 99285; G0378 ×3; 36415

== ENCOUNTER 2024-01-18 07:10 | Day surgery (SDC) | payer MEDICARE ==
[2024-01-14 12:36] VITALS: BMI 19.8
[~2024-01-18 07:10] MED LIST changes: +EPINEPHrine 0.3 MG in Ophthalmic Irrigation Solution 500 ML IRR SCH; -Iopamidol-370 76% 500 ML MDV (1 ML CHARGE) ONE
[2024-01-18] MEDS ORDERED: Cyclopentolate 1% Opth Drop 2 ML BOT ONE (07:42)
[2024-01-18] MEDS ORDERED: PHENYLephrine 2.5% Ophth Soln 15 ml Bottle ONE (07:42)
[2024-01-18] MEDS ORDERED: Indocyanine Green 25 MG/10 ML VIAL ONE ×2 (07:58→08:40)
[2024-01-18] MEDS ORDERED: PROPOFOL 20 ML ONE (08:26)
[2024-01-18] MEDS ORDERED: fentaNYL 50 mcg/mL 1 mL Vial ONE (08:26)
[2024-01-18] MEDS ORDERED: Bupivacaine 0.75% 10 ML VIAL ONE (08:40)
[2024-01-18] MEDS ORDERED: Triamcinolone 40 MG/ML VIAL ONE (08:40)
[2024-01-18] MEDS ORDERED: Lidocaine 4% PF 5 ML AMP ONE (08:40)
[2024-01-18] MEDS ORDERED: CEFAZOLIN 1 GM VIAL ONE (08:40)
[2024-01-18] MEDS ORDERED: Maxitrol 0.1% Opth Oint 3.5 GM TUBE ONE (08:40)
[2024-01-18] MEDS ORDERED: Lidocaine 1% PF 5 ML VIAL ONE (08:40)
== END 2024-01-18 09:55 | disposition home or self-care (01) ==
LOC: SDC 07:10
PROVIDERS: ATTEND Ophthalmology Retina Specialist
PROC: 08943ZZ Drainage of Right Vitreous, Percutaneous Approach (ICD-10-PCS; principal; 2024-01-18)
DX: H35.371 Puckering of macula, right eye (principal); I25.10 Atherosclerotic heart disease of native coronary artery without angina pectoris; I10 Essential (primary) hypertension; I48.91 Unspecified atrial fibrillation; M06.9 Rheumatoid arthritis, unspecified; Z98.890 Other specified postprocedural states; E78.5 Hyperlipidemia, unspecified; Z91.048 Other nonmedicinal substance allergy status; Z88.2 Allergy status to sulfonamides; Z88.5 Allergy status to narcotic agent; J30.1 Allergic rhinitis due to pollen; Z91.018 Allergy to other foods; Z88.8 Allergy status to other drugs, medicaments and biological substances; Z88.7 Allergy status to serum and vaccine
CPT/HCPCS: 67041; J3010; J0171; J0690; J2704; J3301; J3490

== ENCOUNTER 2024-05-30 13:47 | Outpatient (CLI) | payer MEDICARE | END 2024-05-30 13:48 | disposition home or self-care (01) | LOC: BICRAD 13:47 | PROVIDERS: ATTEND Family Medicine | DX: J40 Bronchitis, not specified as acute or chronic (principal); R63.4 Abnormal weight loss; R79.9 Abnormal finding of blood chemistry, unspecified | CPT/HCPCS: 0241U; 71046; 82728; 83540; 83550; 36415; 80053; 84443; 85025 ==

== ENCOUNTER 2024-06-08 07:20 | Outpatient (CLI) | payer MEDICARE | END 2024-06-08 07:21 | disposition home or self-care (01) | LOC: CT 07:20 | PROVIDERS: ATTEND Family Medicine | DX: R63.4 Abnormal weight loss (principal); R17 Unspecified jaundice; I51.7 Cardiomegaly; R91.8 Other nonspecific abnormal finding of lung field; J90 Pleural effusion, not elsewhere classified; R09.89 Other specified symptoms and signs involving the circulatory and respiratory systems; J92.9 Pleural plaque without asbestos; M47.816 Spondylosis without myelopathy or radiculopathy, lumbar region; M48.061 Spinal stenosis, lumbar region without neurogenic claudication | CPT/HCPCS: 71270; 74178 ==

== ENCOUNTER 2024-08-29 21:02 | Inpatient (IN) | payer MEDICARE ==
[2024-08-29 21:32] LABS: #Basophils Less than 0.03 10x3/uL (0.0-0.2); #Eosinophils Less than 0.03 10x3/uL (0.0-0.7); %Basophils 0.1 % (0.0-1.0); %Eosinophils 0.3 % (0.0-10.0); %Lymphocytes 14.2 % (21.0-51.0); %Monocytes 2.1 % (0.0-10.0); %Neutrophils 82.8 % (42.0-75.0); Hematocrit 39.5 % (36.0-47.0); Hemoglobin 12.3 g/dL (12.0-16.0); Mean Corpuscular HGB CONC 31.1 g/dL (32.0-36.0); Mean Corpuscular Hemoglobin 27.3 pg (27.0-31.0); Mean Corpuscular Volume 87.8 fL (78.0-98.0); Mean Platelet Volume 10.5 fL (7.4-10.4); Platelet Count 232 10x3/uL (130-400); RBC Distribution Width 21.1 % (11.5-14.5)
[2024-08-29] MEDS ORDERED: Nitroglycerin 2% Ointment 1 INCH/1 GM Packet ONE (21:53)
[2024-08-29 22:00] LABS: Troponin I 0.013 ng/mL (< 0.028)
[2024-08-29 22:06] LABS: ALT (SGPT) 29 U/L (8-55); AST (SGOT) 61 U/L (5-34); Albumin 3.5 g/dL (3.4-4.8); Alkaline Phosphatase 113 U/L (40-110); Anion Gap 17 mmol/L (10-20); BUN (Urea Nitrogen) 24 mg/dL (9.8-20.1); Bilirubin, Total 3.3 mg/dL (0.2-1.2); Calc. Creatinine Clearance 0 mL/min (70-130); Calcium 9.3 mg/dL (7.8-10.44); Carbon Dioxide 23 mmol/L (23-31); Chloride 100 mmol/L (98-107); Estimated GFR 75; Globulin 4.1 g/dL (2.4-3.5); Glucose 120 mg/dL (83-110); Lipase 95 U/L (8-78); Potassium 4.7 mmol/L (3.5-5.1); Protein, Total 7.6 g/dL (5.8-8.1); Sodium 135 mmol/L (136-145)
[2024-08-29] MEDS ORDERED: Furosemide 40 MG (4 mL) VIAL ONE (22:53)
[2024-08-29] MEDS ORDERED: Bisacodyl 5 MG TAB PO PRN (23:07)
[2024-08-29] MEDS ORDERED: Ondansetron ODT 4 MG TAB PO PRN (23:07)
[2024-08-29] MEDS ORDERED: Senokot S 8.6-50 MG TAB PO PRN (23:07)
[2024-08-29] MEDS ORDERED: diphenhydrAMINE 25 MG CAP PO PRN (23:07)
[2024-08-29] MEDS ORDERED: Sodium Chloride 0.65% Nasal 44 ML BOT EA NARE PRN (23:07)
[2024-08-29] MEDS ORDERED: Moisturizing Cream (Eucerin) 113 GM JAR TOP PRN (23:07)
[2024-08-29] MEDS ORDERED: Artificial Tear Ophth Sol 15 ML BOT EA EYE PRN (23:07)
[2024-08-29] MEDS ORDERED: Electrolyte Replacement Protocol FS SCH (23:15)
[2024-08-29 23:57] LABS: Magnesium 1.8 mg/dL (1.6-2.6)
[2024-08-30] MEDS: Hydrochlorothiazide 25 MG TAB PO SCH ×2 (01:19→09:30)
[2024-08-30 01:31] LABS: Troponin I 0.021 ng/mL (< 0.028)
[2024-08-30 01:34] VITALS: BMI 20.4
[2024-08-30 04:25] LABS: INR-International Normal Ratio 1.6
[2024-08-30 04:26] LABS: PTT 35.5 sec (22.9-36.1)
[2024-08-30] MEDS: Furosemide 40 MG (4 mL) VIAL SLOW IVP SCH (05:05)
[2024-08-30 05:38] LABS: Bacteria/HPF None Seen HPF (None Seen); Bilirubin Negative (Negative); Blood, Urine Negative (Negative); Clarity Clear (Clear); Glucose, Urine (Dipstick) Normal (Negative); Ketone, Urine Negative (Negative); Leukocyte Negative Leu/uL (Negative); Nitrite Negative (Negative); Protein, Urine (Dipstick) Negative (Neg-Trace); RBC/HPF 0-3 HPF (0-3); Specific Gravity, Urine 1.006 (1.002-1.036); Squamous Epithelial None Seen HPF (0-3); Urobilinogen Normal mg/dL (Less than 2); WBC/HPF 0-3 HPF (0-3); pH, Urine 7.5 (5.0-9.0)
[2024-08-30] MEDS ORDERED: Furosemide 40 MG (4 mL) VIAL SLOW IVP SCH (06:00)
[2024-08-30] MEDS: Aspirin 81 mg Enteric Coated Tablet PO SCH (09:29)
[2024-08-30] MEDS: Apixaban 2.5 MG TAB PO SCH (09:30)
[2024-08-30] MEDS: Sertraline 25 MG TAB PO SCH ×2 (09:30→21:28)
[2024-08-30] MEDS: Magnesium 2 GM/50 ML(in water) 2 GM in Premix 1 BAG IVPB SCH (09:31)
[2024-08-30] MEDS: Atenolol 50 MG TAB PO SCH (09:31)
[2024-08-30] MEDS ORDERED: Artificial Tear Ophth Sol 15 ML BOT EA EYE PRN (10:39)
[2024-08-30] MEDS: Losartan 25 MG TAB PO SCH (21:25)
[2024-08-30] MEDS: Ketorolac Tromethamine 30 MG (1 mL) VIAL IVP SCH (22:31)
[2024-08-31 05:01] LABS: #Basophils 0.04 10x3/uL (0.0-0.2); %Basophils 0.6 % (0.0-1.0); %Eosinophils 6.1 % (0.0-10.0); %Monocytes 8.1 % (0.0-10.0); %Neutrophils 58.9 % (42.0-75.0); Hematocrit 37.1 % (36.0-47.0); Hemoglobin 11.8 g/dL (12.0-16.0); Mean Corpuscular HGB CONC 31.8 g/dL (32.0-36.0); Mean Corpuscular Hemoglobin 27.4 pg (27.0-31.0); Mean Corpuscular Volume 86.1 fL (78.0-98.0); Mean Platelet Volume 10.3 fL (7.4-10.4); Platelet Count 231 10x3/uL (130-400); Red Blood Cell (RBC) Count 4.31 mill/uL (4.20-5.40)
[2024-08-31 05:17] LABS: Calc. Creatinine Clearance 34 mL/min (70-130); Estimated GFR 63
[2024-08-31 05:19] LABS: ALT (SGPT) 19 U/L (8-55); AST (SGOT) 30 U/L (5-34); Albumin 2.8 g/dL (3.4-4.8); Alkaline Phosphatase 99 U/L (40-110); Anion Gap 13 mmol/L (10-20); BUN (Urea Nitrogen) 28 mg/dL (9.8-20.1); Calcium 8.6 mg/dL (7.8-10.44); Carbon Dioxide 29 mmol/L (23-31); Chloride 95 mmol/L (98-107); Globulin 3.2 g/dL (2.4-3.5); Glucose 89 mg/dL (83-110); Sodium 134 mmol/L (136-145)
[2024-08-31] MEDS: Potassium Chloride 20 MEQ in Premix 1 BAG IVPB SCH (06:07)
[2024-08-31] MEDS: Vitamin E 400 UNITS CAP PO SCH (09:05)
[2024-08-31] MEDS: Folic Acid 1 MG TAB PO SCH (09:05)
[2024-08-31] MEDS: Fluticasone Propionate Nasal Spray 16 gm Bottle NASAL SCH (09:06)
[2024-08-31] MEDS ORDERED: Sincalide 5 MCG VIAL ONE (12:24)
[2024-08-31] MEDS ORDERED: Sterile Water 10 ML ONE (12:25)
[2024-08-31] MEDS ORDERED: Bacteriostatic Normal Saline 30 ML VIAL ONE (12:25)
[2024-08-31] MEDS: hydrALAZINE 25 MG TAB PO SCH (20:26)
[2024-09-01 04:59] LABS: #Basophils 0.04 10x3/uL (0.0-0.2); %Basophils 0.6 % (0.0-1.0); %Eosinophils 7.3 % (0.0-10.0); %Lymphocytes 28.9 % (21.0-51.0); %Monocytes 12.7 % (0.0-10.0); %Neutrophils 50.3 % (42.0-75.0); Hematocrit 37.7 % (36.0-47.0); Mean Corpuscular HGB CONC 31.8 g/dL (32.0-36.0); Mean Corpuscular Hemoglobin 27.5 pg (27.0-31.0); Mean Corpuscular Volume 86.5 fL (78.0-98.0); Platelet Count 236 10x3/uL (130-400); RBC Distribution Width 21.2 % (11.5-14.5); Red Blood Cell (RBC) Count 4.36 mill/uL (4.20-5.40)
[2024-09-01 05:25] LABS: ALT (SGPT) 17 U/L (8-55); AST (SGOT) 28 U/L (5-34); Albumin 2.7 g/dL (3.4-4.8); Alkaline Phosphatase 104 U/L (40-110); Anion Gap 12 mmol/L (10-20); BUN (Urea Nitrogen) 33 mg/dL (9.8-20.1); Bilirubin, Total 1.6 mg/dL (0.2-1.2); Calc. Creatinine Clearance 26 mL/min (70-130); Calcium 8.5 mg/dL (7.8-10.44); Carbon Dioxide 30 mmol/L (23-31); Chloride 97 mmol/L (98-107); Estimated GFR 50; Globulin 3.1 g/dL (2.4-3.5); Glucose 89 mg/dL (83-110); Potassium 3.2 mmol/L (3.5-5.1); Protein, Total 5.8 g/dL (5.8-8.1); Sodium 136 mmol/L (136-145)
[2024-09-01] MEDS: Furosemide 40 MG TAB PO SCH (08:35)
[2024-09-01] MEDS: Potassium Chloride 20 MEQ TAB PO SCH ×2 (08:36→12:39)
[2024-09-01 12:06] VITALS: TEMP 98.1
[2024-09-01 13:18] VITALS: BP 134/75
== END 2024-09-01 14:45 | disposition home or self-care (01) | DRG 291 ==
LOC: ERS 21:02 → 2NO 22:28
PROVIDERS: ADMIT Family Medicine; ATTEND Internal Medicine
DX: I11.0 Hypertensive heart disease with heart failure (principal); J96.01 Acute respiratory failure with hypoxia; Q21.0 Ventricular septal defect; I48.20 Chronic atrial fibrillation, unspecified; R18.8 Other ascites; I50.811 Acute right heart failure; I27.20 Pulmonary hypertension, unspecified; R79.89 Other specified abnormal findings of blood chemistry; Z66 Do not resuscitate; E80.6 Other disorders of bilirubin metabolism; I69.320 Aphasia following cerebral infarction; I69.331 Monoplegia of upper limb following cerebral infarction affecting right dominant side; J39.8 Other specified diseases of upper respiratory tract; M81.0 Age-related osteoporosis without current pathological fracture; I36.1 Nonrheumatic tricuspid (valve) insufficiency; M06.9 Rheumatoid arthritis, unspecified; F32.A Depression, unspecified; E78.5 Hyperlipidemia, unspecified; Z79.01 Long term (current) use of anticoagulants; Z79.899 Other long term (current) drug therapy; Z79.82 Long term (current) use of aspirin; Z88.8 Allergy status to other drugs, medicaments and biological substances; Z88.2 Allergy status to sulfonamides
CPT/HCPCS: 36415; 71045; 76705; 78227; 80053; 81001; 83690; 83735; 83880; 84443; 84484; 85025; 85610; 85730; 93005; 93306; 93798; 93970; 96374; A9537; J1885; J1940; J2805; J3475; J3480

== ENCOUNTER 2024-12-14 08:02 | Outpatient (CLI) | payer MEDICARE | END 2024-12-14 08:03 | disposition home or self-care (01) | LOC: ULT 08:02 | PROVIDERS: ATTEND Family Medicine | DX: R17 Unspecified jaundice (principal); K80.20 Calculus of gallbladder without cholecystitis without obstruction; K82.8 Other specified diseases of gallbladder | CPT/HCPCS: 76700 ==

== ENCOUNTER 2025-05-03 10:54 | Outpatient (CLI) | payer MEDICARE | END 2025-05-03 10:55 | disposition home or self-care (01) | LOC: BICRAD 10:54 | PROVIDERS: ATTEND Family Medicine | DX: M51.16 Intervertebral disc disorders with radiculopathy, lumbar region (principal); M25.551 Pain in right hip; M47.816 Spondylosis without myelopathy or radiculopathy, lumbar region | CPT/HCPCS: 72100 ==

== ENCOUNTER 2025-08-03 08:45 | Outpatient (CLI) | payer MEDICARE | END 2025-08-03 08:46 | disposition home or self-care (01) | LOC: BICMAMMO 08:45 | PROVIDERS: ATTEND Family Medicine | DX: M81.0 Age-related osteoporosis without current pathological fracture (principal) | CPT/HCPCS: 77080 ==

== ENCOUNTER 2025-08-14 14:49 | Outpatient (CLI) | payer MEDICARE | END 2025-08-14 14:50 | disposition home or self-care (01) | LOC: BICCT 14:49 | DX: R91.8 Other nonspecific abnormal finding of lung field (principal) | CPT/HCPCS: 71250 ==